=== PATIENT | male | born 1975 | race Caucasian/White ===

== ENCOUNTER 2020-06-12 15:47 | Emergency (ER) | payer OTHER, SELFPAY ==
[2020-06-12 15:57] VITALS: BP 176/100; PULSE 71; RESP 16; TEMP 36.7; O2SAT 96; BMI 32.8
--- NOTE | 2020-06-12 16:06 | ED.GENADULT ---
HPI - General Adult General Chief complaint: Dental/Oral Stated complaint: tooth pain, cant find dentist Time Seen by Provider: 06/12/20 15:50 Source: patient Mode of arrival: Ambulatory Limitations: no limitations History of Present Illness HPI narrative: Patient is a 44-year-old male here for evaluation of left lower jaw and dental pain. He states that a filling has fallen out and since that time he has had quite a bit of discomfort. He also thinks that the left side of his face is swelling and also has some tingling in the area. He is not having any problems breathing. States he tried to find a dentist but could not find 1 today. He is here because of the symptoms. He did take ibuprofen prior to arrival. Related Data Previous Rx's Medication Instructions Recorded penicillin V potassium 500 mg PO QID 7 Days #28 tab 06/12/20 Allergies Allergy/AdvReac Type Severity Reaction Status Date / Time No Known Drug Allergies Allergy Verified 06/12/20 15:59 Review of Systems Constitutional Constitutional: Denies fever(s) and Denies headache(s) Eyes Eyes: Denies change in vision ENT Ears, Nose, Mouth, and Throat: Denies headache(s) Comments: Left lower jaw pain Cardiovascular Cardiovascular: Denies chest pain and Denies dyspnea Respiratory Respiratory: Denies dyspnea Gastrointestinal Gastrointestinal: Denies abdominal pain Musculoskeletal Musculoskeletal: Denies myalgias Integumentary/Breasts Skin/Breast: Denies lesions and Denies rash Neurologic Neurologic: Denies headache(s) Comments: Tingling left lower jaw Hematologic/Lymphatic On Anticoagulants: No Allergic/Immunologic Allergic/Immunologic: Denies urticaria Patient History Medical History Patient denies medical problems Social History Smoking Status: Never smoker Smoking Status: Never smoker alcohol intake frequency: 3 or more drinks per day Substance Use Type: heroin Exam Initial Vital Signs Initial Vital Signs: Vital Signs Temperature 98.1 F 06/12/20 15:57 Pulse Rate 71 06/12/20 15:57 Respiratory Rate 16 06/12/20 15:57 Blood Pressure 176/100 H 06/12/20 15:57 Pulse Oximetry 96 06/12/20 15:57 Const General: cooperative and comfortable Limitations: mental status not altered HENMT Head: normal to inspection and normocephalic Ears: TM's normal bilaterally Nose: external nose normal Face and sinus: normal facial exam Mouth: oral mucosae normal Teeth and gingiva: other (Tooth 22 missing the filling) Throat: posterior oropharynx normal Eyes Visual Bright: normal visual bright by confrontation Skin Lesions: no lesions Rashes: no rashes Neuro General: patient alert, patient awake and patient oriented x3 Other: Decreased sensation to left mandibular region Extrem General: capillary refill normal Psych Appearance: grossly normal and well kempt Course Orders Ordered: Discontinued Medications Ketorolac Tromethamine (Ketorolac 30 Mg/Ml Vial) 30 mg IM NOW ONE Stop: 06/12/20 16:08 Last Admin: 06/12/20 16:39 Dose: 30 mg Documented by: LALA Penicillin V Potassium (Penicillin Vk 250 Mg Tablet) 500 mg PO NOW ONE Stop: 06/12/20 16:08 Last Admin: 06/12/20 16:39 Dose: 500 mg Documented by: LALA Vital Signs Vital signs: Vital Signs - 8 hr 06/12/20 15:57 06/12/20 17:00 Temperature 98.1 F Pulse Rate 71 74 Respiratory Rate 16 16 Blood Pressure 176/100 H 174/89 H Pulse Oximetry 96 98 Medical Decision Making [facility] Narrative Medical decision making narrative: I did place a temporary filling in the area. Informed him that this could potentially come out on its own and could cause him some issues with biting because it was not contour to his tooth. He does have some swelling on the left side of his jaw so will place the patient on antibiotics. Informed him that he should take Tylenol/ibuprofen for any discomfort. Was given 1st dose of antibiotics here in the ER. He was informed that he needs to make contact with a dentist as they will provide definitive treatment. He expressed understanding and agreement. Discharge Plan Departure Patient Disposition: Home Clinical Impression: Toothache Instructions: DI for Dental Pain Activity Restrictions/Additional Instructions: Recommend you start taking the antibiotics as directed. Your 1st dose was here in the emergency department. A prescription for the remainder was sent to [facility] in [place]. I recommend that you continue to take Tylenol/ibuprofen for any discomfort. I also recommend that you continue to find a dentist is you will need definitive treatment of this issue. Return to the emergency department for any new or worsening symptoms Prescriptions: New penicillin V potassium 500 mg tablet 500 mg PO QID 7 Days Qty: 28 RF: 0
[2020-06-12] MEDS: PENICILLIN VK 250 MG TABLET 500 MG PO (16:39)
[2020-06-12] MEDS: KETOROLAC 30 MG/ML VIAL IM (16:39)
[2020-06-12 17:00] VITALS: BP 174/89; PULSE 74; RESP 16; O2SAT 98
== END 2020-06-12 17:01 | disposition home or self-care (01) ==
PROVIDERS: Emergency Provider Emergency Medicine
DX: K08.89 Other specified disorders of teeth and supporting structures (principal)
CPT/HCPCS: 96372; 99283; J1885